=== PATIENT | female | born 1945 | race Caucasian/White ===

== ENCOUNTER → 2017-06-21 | Outpatient (CLI) | payer OTHER | LOC: M RAD 12:31 | DX: Z12.31 Encounter for screening mammogram for malignant neoplasm of breast (principal) | CPT/HCPCS: 77067 ==

== ENCOUNTER → 2020-05-05 | Outpatient (REF) | payer MEDICARE | LOC: M LABDRWAD 16:02 | PROVIDERS: ATTEND Internal Medicine Pulmonary Disease | DX: J43.9 Emphysema, unspecified (principal) ==

== ENCOUNTER 2020-10-06 18:19 | Emergency (ER) | payer MEDICARE ==
[~2020-10-06] VITALS: Ht 175.3 cm; Wt 97.7 kg
[2020-10-06 18:20] VITALS: BP 164/87
[2020-10-06] MEDS ORDERED: CHOL50003 PO (19:48)
[2020-10-06] MEDS ORDERED: FIOR1CAP PO (19:48)
[2020-10-06] MEDS ORDERED: LEXA1TAB PO (19:48)
[2020-10-06] MEDS ORDERED: COLE1TAB PO (19:48)
[2020-10-07] MEDS ORDERED: CLINDAMYCIN 150MG CAPSULE PO ONE ×2 (02:55→03:05)
[2020-10-07] MEDS ORDERED: CLEO300C2 PO (03:05)
== END 2020-10-07 04:01 | disposition home or self-care (01) ==
LOC: M ED 18:19
DX: L03.115 Cellulitis of right lower limb (principal); J44.9 Chronic obstructive pulmonary disease, unspecified; Z87.891 Personal history of nicotine dependence; Z88.0 Allergy status to penicillin; Z88.6 Allergy status to analgesic agent

== ENCOUNTER → 2021-05-04 | Outpatient (CLI) | payer MEDICARE ==
[~2021-05-04] MED LIST: CHOL50003 PO; CLEO300C2 PO; COLE1TAB PO; FIOR1CAP PO; LEXA1TAB PO
== END ==
LOC: M PLAIMG 13:40
PROVIDERS: ATTEND Internal Medicine Pulmonary Disease
DX: J43.9 Emphysema, unspecified (principal)

== ENCOUNTER → 2021-10-26 | Outpatient (CLI) | payer MEDICARE | LOC: M WHC 14:02 | PROVIDERS: ATTEND Internal Medicine | DX: Z12.31 Encounter for screening mammogram for malignant neoplasm of breast (principal); Z13.820 Encounter for screening for osteoporosis; M85.851 Other specified disorders of bone density and structure, right thigh; M85.852 Other specified disorders of bone density and structure, left thigh ==

== ENCOUNTER → 2023-04-21 | Outpatient (CLI) | payer OTHER | LOC: M RAD 07:59 | PROVIDERS: ATTEND Internal Medicine | DX: I12.9 Hypertensive chronic kidney disease with stage 1 through stage 4 chronic kidney disease, or unspecified chronic kidney disease (principal); K76.0 Fatty (change of) liver, not elsewhere classified ==

== ENCOUNTER → 2023-12-08 | Outpatient (CLI) | payer OTHER | LOC: M WHC 12:06 | PROVIDERS: ATTEND Internal Medicine | DX: Z12.31 Encounter for screening mammogram for malignant neoplasm of breast (principal); Z13.820 Encounter for screening for osteoporosis; M85.851 Other specified disorders of bone density and structure, right thigh; M85.852 Other specified disorders of bone density and structure, left thigh ==

== ENCOUNTER → 2024-10-23 | Outpatient (REF) | payer MEDICARE, OTHER | LOC: M LAB REF 17:24 | PROVIDERS: ATTEND Internal Medicine | DX: N39.0 Urinary tract infection, site not specified (principal) ==

== ENCOUNTER → 2024-12-26 | Outpatient (CLI) | payer MEDICARE | LOC: M WHC 13:37 | PROVIDERS: ATTEND Internal Medicine | DX: Z12.31 Encounter for screening mammogram for malignant neoplasm of breast (principal); R92.313 Mammographic fatty tissue density, bilateral breasts ==